=== PATIENT | male | born 1955 | race Caucasian/White ===

== ENCOUNTER → 2017-01-07 | Outpatient (CLI) | payer OTHER | END | disposition home or self-care (01) | LOC: RAD.S 14:46 | DX: R47.81 Slurred speech (principal); I67.82 Cerebral ischemia ==

== ENCOUNTER → 2017-01-10 | Outpatient (CLI) | payer OTHER | END | disposition home or self-care (01) | LOC: RAD.S 01-07 16:54 | DX: I67.9 Cerebrovascular disease, unspecified (principal) ==

== ENCOUNTER → 2017-01-19 | Outpatient (CLI) | payer OTHER ==
--- NOTE | ~2017-01-19 | ECH ---
Transthoracic Echocardiography Report (TTE) Demographics Patient Name ARIELA THAPA JR Date of Study 01/19/2017 Patient Number [id number] Visit Number [id number] Date of 1955 Room Number Accession Number [id number] Gender Male Age 61 year(s) Referring Shawna Barreto MD Feed Mill Operator Apryl Smith [facility] Physician Physician Interpreting King Dorian Dennis MD Sales Architect Physician Supervising Ordering Physician Shawna Barreto MD, MD/P Nurse Stress Replenisher Conclusions Summary Technically adequate exam. The estimated left ventricular ejection fraction is 60-65%. Moderate left ventricular hypertrophy. Diastolic assessment reveals Grade I diastolic dysfunction. Bubble study was done, there is no evidence for a PFO or ASD. No significant valvular abnormalities. Of note patient had JUAN MANUEL performed in 2011 with no evidence of PFO by agitated saline. Procedure Type of Study TTE procedure:Echo Complete SF. Procedure Date Date: 01/19/2017 Start: 09:00 AM Technical Quality: Adequate visualization Additional Indications:recurrent CVA Appropriate Use Criteria: 9 Contrast Medium: Bubble Study. Height: 68 inches Weight: 250 pounds BSA: 2.25 m Rhythm: Within normal limits HR: 71 bpm BP: 140/64 mmHg M-Mode/2D Measurements LV Diastolic Dimension: 4.46 cm LV Systolic Dimension: 2.83 cm LV Septum Diastolic: 1.6 cm LV PW Diastolic: 1.4 cm AO Root Dimension: 2.7 cm LA Dimension: 4.45 cm RV Diastolic Dimension: 3.4 cm LA volume: 56 ml LA volume index: 25 ml/m LVOT: 2.3 cm TAPSE: 2.8 cm TDI-S': 14 cm/s Doppler Measurements AV Peak Velocity: 1.03 m/s MV Peak E-Wave: 0.64 m/s AV Peak Gradient: 4.24 mmHg MV Peak A-Wave: 0.67 m/s AV Mean Gradient: 2.5 mmHg MV E/A Ratio: 0.96 LVOT Peak Velocity: 0.89 m/s TR Velocity:2.4 m/s MV Deceleration Time: 214 msec TR Gradient:23.04 mmHg PV Peak Velocity: 0.9 m/s Estimated RAP:5 mmHg PV Peak Gradient: 3.24 mmHg Estimated RVSP: 28 mmHg Estimated PASP: 28.04 mmHg RA Area: 13 cm Findings Left Ventricle Normal left ventricle size and function. Moderate left ventricular hypertrophy. Diastolic assessment reveals Grade I diastolic dysfunction. Right Ventricle Normal right ventricle structure and function. Left Atrium Normal left atrial size. Bubble study was done, there is no evidence for a PFO or ASD. Right Atrium Normal right atrial size. Mitral Valve Normal mitral valve structure and function. Trivial mitral regurgitation by color Doppler. Aortic Valve Normal aortic valve structure and function. Tricuspid Valve Normal tricuspid valve structure and function. Trivial tricuspid regurgitation by color Doppler. Pulmonic Valve Normal pulmonic valve structure and function. Trivial pulmonic valve regurgitation by color Doppler. Pericardial Effusion No evidence of pericardial effusion. Miscellaneous Visualized portions of the aortic root and ascending aorta appear normal in size. Pleural Effusion No evidence of pleural effusion. Signature
== END | disposition home or self-care (01) ==
LOC: CARD 01-13 13:50
DX: I63.8 Other cerebral infarction (principal); I51.89 Other ill-defined heart diseases; Z86.73 Personal history of transient ischemic attack (TIA), and cerebral infarction without residual deficits